=== PATIENT | male | born 2000 | race Hispanic/Latino ===

== ENCOUNTER 2023-01-04 02:28 | Emergency (ER) | payer OTHER ==
[2023-01-04 03:48] LABS: Absolute Lymphocytes (CBC) 0.5 K/uL (0.7-4.9); Hematocrit 39.7 % (39.6-49.0); Lymphocytes % 4.6 % (15.3-44.8); MCV 88.9 fL (80-100); MPV 8.8 fL (7.6-11.3); Platelets 186 thou/uL (152-406); RBC Red Blood Cell Count 4.47 M/uL (4.33-5.43)
[2023-01-04 03:58] LABS: SARS-CoV-2 Antigen Rapid Res Negative (Negative)
[2023-01-04] MEDS ORDERED: MORPHINE 4 MG/ML SYR ONE ×2 (04:00→06:15)
[2023-01-04] MEDS ORDERED: CEFTRIAXONE 1000 MG/VIAL ONE (04:00)
[2023-01-04] MEDS ORDERED: NA CHLORIDE 0.9% 50 ML ONE (04:01)
[2023-01-04] MEDS ORDERED: NA CHLORIDE 0.9% 2,000 ML ONE (04:01)
[2023-01-04] MEDS ORDERED: KETOROLAC 30 MG/ML INJ ONE (04:01)
[2023-01-04] MEDS ORDERED: TDAP (DIPHTH,PERTUSS(ACELL),TET VAC) 0.5 ML VIAL IMVAC ONE (04:01)
[2023-01-04 04:03] LABS: Potassium 3.4 mEq/L (3.5-5.1)
--- NOTE | 2023-01-04 05:56 | EDPHYS ---
Physician Documentation [facility] Name: Bill Bryan Age: 22 yrs Sex: Male : 2000 Arrival Date: 01/04/2023 Time: 02:28 Bed 6 Private MD: ED Physician Daniel Main HPI: 01/04 02:38 This 22 yrs old Male presents to ER via Unassigned with complaints of Facial sp4 trauma . 02:38 For a 22-year-old male presents from long-term with guards acute facial trauma. Patient sp4 cannot exactly what happened to him. . 05:54 Patient states he is not sure when it has happened to him. Patient was reportedly found sp4 on the floor of his cell laying down. . Historical: - Allergies: 03:19 Bee Pollen; pf1 - PMHx: 03:19 Asthma; Hypertensive disorder; pf1 - PSHx: 03:19 None; pf1 - Immunization history:: Adult Immunizations up to date, Client reports receiving the 1st dose of the Covid vaccine, Client reports receiving the Dudley \T\ Dudley single-dose vaccine. Last tetanus immunization: < 5 years ago Flu vaccine is not up to date. - Social history:: Smoking status: Patient reports the use of cigarette tobacco products, smokes one-half pack cigarettes per day, Patient/guardian denies using alcohol, street drugs. - Family history:: not pertinent. ROS: 05:54 Constitutional: Negative for fever, chills, and weight loss, ENT: Positive for facial sp4 injury, right facial swelling, right lower jaw pain, positive for tooth misalignment 05:54 All other systems are negative. Exam: 05:54 Constitutional: This is a well developed, well nourished patient who is awake, alert, sp4 and in no acute distress. Head/Face: Normocephalic, moderate right facial swelling, right lower swelling around the right mandible, positive for large right facial hematoma Eyes: Pupils equal round and reactive to light, extra-ocular motions intact. Lids and lashes normal. Conjunctiva and sclera are not injected. Cornea within normal limits. Periorbital areas with no swelling, redness, or edema. ENT: Nares patent. No nasal discharge, no septal abnormalities noted. Tympanic membranes are normal and external auditory canals are clear. There is trismus, patient not able to open his mouth, anterior misalignment of lower dental structures indicative of midline mandibular fracture. Moderate to severe right facial right mandibular tenderness Neck: Trachea midline, no thyromegaly or masses palpated, and no cervical lymphadenopathy. Supple, full range of motion without nuchal rigidity, or vertebral point tenderness. Chest/axilla: Normal chest wall appearance and motion. Nontender with no deformity. No lesions are appreciated. Cardiovascular: Regular rate and rhythm with a normal S1 and S2. No gallops, murmurs, or rubs. Normal PMI, no JVD. No pulse deficits. Respiratory: Lungs have equal breath sounds bilaterally, clear to auscultation and percussion. No rales, rhonchi or wheezes noted. No increased work of breathing, no retractions or nasal flaring. Abdomen/GI: Soft, non-tender, with normal bowel sounds. No distension or tympany. No guarding or rebound. No evidence of tenderness throughout. Back: No spinal tenderness. No costovertebral tenderness. Skin: Warm, dry with normal turgor. Normal color with no rashes, no lesions, and no evidence of cellulitis. MS/ Extremity: Pulses equal, no cyanosis. Neurovascular intact. Full, normal range of motion. Neuro: Awake and alert, GCS 15, oriented to person, place, time, and situation. Cranial nerves II-XII grossly intact. Motor strength 5/5 in all extremities. Sensory grossly intact. Psych: Awake, alert, with orientation to person, place and time. Behavior, mood, and affect are within normal limits Vital Signs: 02:29 BP 138 / 90; Pulse 91; Resp 20; Temp 97; Pulse Ox 98.5% on R/A; Weight 71 kg; Height 6 pf1 ft. 0 in. ; Pain 8/10; 04:00 BP 114 / 83; Pulse 81; Resp 16; Pulse Ox 100% on R/A; jb4 05:00 BP 100 / 67; Pulse 62; Resp 16; Pulse Ox 100% on R/A; jb4 06:15 BP 101 / 67; Pulse 71; Resp 16; Pulse Ox 100% on R/A; kd3 07:08 BP 99 / 63; Pulse 72; Resp 16; Pulse Ox 100% on R/A; tf2 02:29 Body Mass Index 21.23 (71.00 kg, 182.88 cm) pf1 02:29 Pain Scale: Adult pf1 MDM: 02:40 Patient medically screened. sp4 05:51 ED course: TECHNIQUE: CT MAXILLOFACIAL WITH IV CONTRAST on 01/04/2023 2:39 AM CDT This sp4 exam was performed according to our departmental dose-optimization program, which includes automated exposure control, adjustment of the mA and/or kV according to patient size and/or use of iterative reconstruction technique. FINDINGS: There is a fracture of the anterior mandible extending into the left anterolateral mandible. There is a second displaced fracture of the angle of the right mandible. The paranasal sinuses are clear. Orbits and globes are unremarkable. Mastoid air cells are clear. Temporomandibular joints are intact. There is extensive soft tissue swelling overlying the right mandible. There is subcutaneous air throughout the left perimandibular soft tissues. IMPRESSION: Anterior and right mandibular fractures. . ED course: FINDINGS: Brain: There is no acute hemorrhage, mass effect or midline shift. Felix-white differentiation is preserved. There is no hydrocephalus. There is no significant volume loss for age. The calvarium is intact. Orbits and globes are unremarkable. The paranasal sinuses are clear. Mastoid air cells are clear. Cervical Spine: Incompletely visualized right mandibular fracture is present with subcutaneous air in the perimandibular soft tissues. There are multiple fractures of the anterior nasal bones. Alignment is anatomic. Disc spaces are maintained. Vertebral body heights are preserved. Soft tissues are unremarkable. IMPRESSION: Right mandibular fracture. No acute intracranial hemorrhage or cervical spine fracture. 05:57 Differential Diagnosis Facial injury, facial contusion, maxillary fracture, mandibular sp4 fracture. Data reviewed: vital signs, nurses notes, EMS record, lab test result(s), radiologic studies, CT scan. Consideration of Admission/Observation Patient was admitted/placed on observation. Escalation of care including admission/observation considered. Management of patient was discussed with the following: Cloth Laminating Supervisor: OMFS at [facility]. ED course: Patient's warrant transfer for OMFS attention secondary to complex mandibular fracture. 06:24 ED course: Spoke with Dr. Hernández with ENT surgery and [facility] who has accepted the sp4 patient. . 08 02:39 Order name: Basic Metabolic Panel; Complete Time: 04:44 sp4 01/04 02:39 Order name: CBC with Diff; Complete Time: 04:44 sp4 01/04 02:39 Order name: Type And Screen; Complete Time: 04:44 sp4 01/04 02:40 Order name: SARS RAPID; Complete Time: 04:44 sp4 01/04 02:39 Order name: CT Head C Spine sp4 01/04 02:39 Order name: CT Facial Bones W/ Con \T\ Mpr sp4 01/04 02:39 Order name: Labs collected and sent; Complete Time: 03:44 sp4 01/04 02:40 Order name: NPO; Complete Time: 03:44 sp4 01/04 02:40 Order name: Saline Lock; Complete Time: 03:44 sp4 Administered Medications: 04:11 Drug: morphine IVP or IV 4 mg Route: IVP; Infused Over: 4 mins; Site: right antecubital;jb4 08:05 Follow up: Response: No adverse reaction; Pain is decreased iw 04:11 Drug: Ketorolac IVP 30 mg Route: IVP; Site: right antecubital; jb4 08:04 Follow up: Response: No adverse reaction iw 04:11 Drug: NS 0.9% IV 1000 ml Route: IV; Rate: 1 bolus; Site: right antecubital; jb4 07:00 Follow up: IV Status: Completed infusion iw 04:11 Drug: Rocephin - Rocephin (cefTRIAXone) IVPB 1 grams Route: IVPB; Infused Over: 30 jb4 mins; Site: right antecubital; 04:30 Follow up: IV Status: Completed infusion iw 04:11 Drug: NS 0.9% IV 1000 ml Route: IV; Rate: 125 ml/hr; Site: right antecubital; jb4 08:04 Follow up: IV Status: Infusion continued upon transfer iw 04:33 Drug: Tetanus-Diphtheria Toxoid IM Adult 0.5 ml {College Dean: [employer] ([employer]). jb4 Exp: 06/17/2023. Lot #: [id number]. } Route: IM; Site: right deltoid; 08:05 Follow up: Response: No adverse reaction iw 06:15 Drug: morphine IVP or IV 4 mg Route: IVP; Infused Over: 4 mins; Site: right antecubital;kd3 08:04 Follow up: Response: No adverse reaction; Pain is decreased iw 06:15 Drug: metoCLOPramide IVP 10 mg Route: IVP; Site: right antecubital; kd3 08:04 Follow up: Response: No adverse reaction iw Disposition Summary: 01/04/23 05:54 Transfer Ordered Transfer Location: [facility] sp4 Reason: Higher level of care sp4 Condition: Stable sp4 Problem: new sp4 Symptoms: have improved sp4 Accepting Physician: [facility] OMFS attending -Dr. Hernández of ENT(01/04/23 09:58) iw Diagnosis - Fracture of mandible sp4 - Mandibular angle fracture, facial contusion, facial hematoma, anterior mandibular sp4 fracture Forms: - Medication Reconciliation Form sp4 - SBAR form sp4 Signatures: Dispatcher [employer] EDSharmin Mendoza RN RN iw Russell Bran RN RN jb4 Erin Livingston RN RN kd3 Promise Harvey RN RN pf1 Daniel Main MD MD sp4 Corrections: (The following items were deleted from the chart) 06:26 05:54 [facility] attending sp4 sp4 09:58 06:26 [facility] Hern[facility] sp4 iw
--- NOTE | 2023-01-04 05:56 | ER ---
Nurse's Notes [facility] Name: Bill Bryan Age: 22 yrs Sex: Male : 2000 Arrival Date: 01/04/2023 Time: 02:28 Bed 6 Private MD: Diagnosis: Fracture of mandible;Mandibular angle fracture, facial contusion, facial hematoma, anterior mandibular fracture Presentation: 01/04 02:29 Chief complaint: Patient states: right jaw pain of 8 with swelling, bleeding and pf1 deformity,onset 0030. Patient stated he smoked some K2 earlier and did not remember anything else after that and was found on the floor in his cell. 02:29 Coronavirus screen: Vaccine status: Patient reports receiving the 1st dose of the Covid pf1 vaccine. Client denies travel out of the [place] in the last 14 days. At this time, the client does not indicate any symptoms associated with coronavirus-19. Ebola Screen: Patient negative for fever greater than or equal to 101.5 degrees Fahrenheit, and additional compatible Ebola Virus Disease symptoms. Initial Sepsis Screen: Does the patient meet any 2 criteria? HR > 90 bpm. No. Patient's initial sepsis screen is negative. Does the patient have a suspected source of infection? No. Patient's initial sepsis screen is negative. Risk Assessment: Do you want to hurt yourself or someone else? Patient reports no desire to harm self or others. 02:29 Method Of Arrival: Law Enforcement: [place] [employer] pf1 02:29 Acuity: MELCHOR 3 pf1 06:16 Onset of symptoms was January 04, 2023. kd3 Historical: - Allergies: 03:19 Bee Pollen; pf1 - PMHx: 03:19 Asthma; Hypertensive disorder; pf1 - PSHx: 03:19 None; pf1 - Immunization history:: Adult Immunizations up to date, Client reports receiving the 1st dose of the Covid vaccine, Client reports receiving the Dudley \T\ Dudley single-dose vaccine. Last tetanus immunization: < 5 years ago Flu vaccine is not up to date. - Social history:: Smoking status: Patient reports the use of cigarette tobacco products, smokes one-half pack cigarettes per day, Patient/guardian denies using alcohol, street drugs. - Family history:: not pertinent. Screenin:15 [facility] ED Fall Risk Assessment (Adult) History of falling in the last 3 months, kd3 including since admission No falls in past 3 months (0 pts) Confusion or Disorientation No (0 pts) Intoxicated or Sedated No (0 pts) Impaired Gait No (0 pts) Mobility Assist Device Used No (0 pt) Altered Elimination No (0 pt) Score/Fall Risk Level 0 - 2 = Low Risk Maintained a safe environment. Abuse screen: Denies threats or abuse. Denies injuries from another. Nutritional screening: No deficits noted. Tuberculosis screening: No symptoms or risk factors identified. Assessment: 03:30 General: Appears in no apparent distress. uncomfortable, Behavior is calm, cooperative, jb4 appropriate for age. Pain: Complains of pain in right cheek and right mandible Pain does not radiate. Pain currently is 8 out of 10 on a pain scale. Neuro: Level of Consciousness is awake, alert, obeys commands, Oriented to person, place, time, situation. Cardiovascular: Patient's skin is warm and dry. Respiratory: Airway is patent Respiratory effort is even, unlabored, Respiratory pattern is regular, symmetrical. GI: No signs and/or symptoms were reported involving the gastrointestinal system. : No signs and/or symptoms were reported regarding the genitourinary system. EENT: No signs and/or symptoms were reported regarding the EENT system. Derm: Skin is intact, Skin is pink, warm \T\ dry. Musculoskeletal: Circulation, motion, and sensation intact. Range of motion: intact in all extremities. 03:30 Injury Description: Hematoma to the right lower jaw. jb4 05:00 Reassessment: Patient appears in no apparent distress at this time. Patient and/or jb4 family updated on plan of care and expected duration. Pain level reassessed. Patient is alert, oriented x 3, equal unlabored respirations, skin warm/dry/pink. 06:00 Reassessment: Patient appears in no apparent distress at this time. Patient and/or tf2 family updated on plan of care and expected duration. Pain level reassessed. Patient is alert, oriented x 3, equal unlabored respirations, skin warm/dry/pink. 07:00 Reassessment: Patient appears in no apparent distress at this time. Patient and/or jb4 family updated on plan of care and expected duration. Pain level reassessed. Patient is alert, oriented x 3, equal unlabored respirations, skin warm/dry/pink. Hematoma notably larger to right lower jaw. provider notified. 08:02 Reassessment: Patient appears in no apparent distress at this time. Patient and/or iw family updated on plan of care and expected duration. Pain level reassessed. Patient is alert, oriented x 3, equal unlabored respirations, skin warm/dry/pink. report called to [facility], pt will be picked up at 0900. Vital Signs: 02:29 BP 138 / 90; Pulse 91; Resp 20; Temp 97; Pulse Ox 98.5% on R/A; Weight 71 kg; Height 6 pf1 ft. 0 in. ; Pain 8/10; 04:00 BP 114 / 83; Pulse 81; Resp 16; Pulse Ox 100% on R/A; jb4 05:00 BP 100 / 67; Pulse 62; Resp 16; Pulse Ox 100% on R/A; jb4 06:15 BP 101 / 67; Pulse 71; Resp 16; Pulse Ox 100% on R/A; kd3 07:08 BP 99 / 63; Pulse 72; Resp 16; Pulse Ox 100% on R/A; tf2 02:29 Body Mass Index 21.23 (71.00 kg, 182.88 cm) pf1 02:29 Pain Scale: Adult pf1 ED Course: 02:29 Patient arrived in ED. rv1 02:36 Daniel Main MD is Attending Physician. sp4 03:19 Triage completed. pf1 04:11 Russell Bran, RN is Primary Nurse. jb4 05:01 CT Head C Spine In Process Unspecified. EDMS 05:02 CT Facial Bones W/ Con \T\ Mpr In Process Unspecified. EDMS 05:52 Initiated transfer with Rosie at [facility]. rv1 06:16 Arm band placed on right wrist. kd3 06:16 Patient has correct armband on for positive identification. Provided Education on: . kd3 06:23 Pt accepted to [facility] by Dr. Hernández. rv1 06:56 [facility] will call back with ETA for transportation. rv1 08:03 No provider procedures requiring assistance completed. iw 08:03 Maintain EMS IV. Dressing intact. Good blood return noted. Site clean \T\ dry. Gauge \T\ iw site: 20 RAC. Administered Medications: 04:11 Drug: morphine IVP or IV 4 mg Route: IVP; Infused Over: 4 mins; Site: right antecubital;jb4 08:05 Follow up: Response: No adverse reaction; Pain is decreased iw 04:11 Drug: Ketorolac IVP 30 mg Route: IVP; Site: right antecubital; jb4 08:04 Follow up: Response: No adverse reaction iw 04:11 Drug: NS 0.9% IV 1000 ml Route: IV; Rate: 1 bolus; Site: right antecubital; jb4 07:00 Follow up: IV Status: Completed infusion iw 04:11 Drug: Rocephin - Rocephin (cefTRIAXone) IVPB 1 grams Route: IVPB; Infused Over: 30 jb4 mins; Site: right antecubital; 04:30 Follow up: IV Status: Completed infusion iw 04:11 Drug: NS 0.9% IV 1000 ml Route: IV; Rate: 125 ml/hr; Site: right antecubital; jb4 08:04 Follow up: IV Status: Infusion continued upon transfer iw 04:33 Drug: Tetanus-Diphtheria Toxoid IM Adult 0.5 ml {Country Singer: [employer] ([employer]). jb4 Exp: 06/17/2023. Lot #: [id number]. } Route: IM; Site: right deltoid; 08:05 Follow up: Response: No adverse reaction iw 06:15 Drug: morphine IVP or IV 4 mg Route: IVP; Infused Over: 4 mins; Site: right antecubital;kd3 08:04 Follow up: Response: No adverse reaction; Pain is decreased iw 06:15 Drug: metoCLOPramide IVP 10 mg Route: IVP; Site: right antecubital; kd3 08:04 Follow up: Response: No adverse reaction iw Medication: 06:16 VIS not applicable for this client. kd3 Outcome: 05:54 ER care complete, transfer ordered by . sp4 09:58 Patient left the ED. iw Signatures: Dispatcher [employer] Sharmin Chacon RN RN iw Russell Bran RN RN jb4 Erin Livingston RN RN kd3 Promise Harvey RN RN pf1 Villegas, Rebecca rv1 Potepalov, Sergey, MD MD sp4 Ceron, Keyona, RN RN tf2 Corrections: (The following items were deleted from the chart) 07:09 Reassessment: Patient appears in no apparent distress at this time. Patient tf2 and/or family updated on plan of care and expected duration. Pain level reassessed. Patient is alert, oriented x 3, equal unlabored respirations, skin warm/dry/pink. tf2 07:09 Reassessment: Patient appears in no apparent distress at this time. Patient jb4 and/or family updated on plan of care and expected duration. Pain level reassessed. Patient is alert, oriented x 3, equal unlabored respirations, skin warm/dry/pink. Hematoma notably larger to right lower jaw. provider notified. tf2 03:30 Injury Description: Hematoma to the right lower jaw. tf2 jb4
[2023-01-04] MEDS ORDERED: NA CHLORIDE 0.9% 100 ML ONE (06:15)
[2023-01-04] MEDS ORDERED: METOCLOPRAMIDE 10 MG/2mL INJ ONE (06:16)
[2023-01-04 10:03] VITALS: TEMP 97
[2023-01-04 10:04] VITALS: O2SAT 100
[2023-01-04 10:08] VITALS: BP 99/63
--- NOTE | 2023-01-05 17:28 | RAD REPORT ---
EXAM DESCRIPTION: CT - Head C Spine Mpr Wo Con - 01/04/2023 4:59 am CLINICAL HISTORY: Facial injury COMPARISON: None. TECHNIQUE: CT HEAD AND CERVICAL SPINE WITHOUT CONTRAST on 01/04/2023 2:39 AM CDT This exam was performed according to our departmental dose-optimization program, which includes autom ated exposure control, adjustment of the mA and/or kV according to patient size and/or use of iterati ve reconstruction technique. FINDINGS: Brain: There is no acute hemorrhage, mass effect or midline shift. Felix-white differentiat ion is preserved. There is no hydrocephalus. There is no significant volume loss for age. The calvarium is intact. Orbits and globes are unremarkable. The paranasal sinuses are clear. Mastoid air cells are clear. Cervical Spine: Incompletely visualized right mandibular fracture is present with subcutaneous air in the perimandibular soft tissues. There are multiple fractures of the anterior nasal bones. Alignment is anatomic. Disc spaces are maintained. Vertebral body heights are preserved. Soft tissues are unremarkable. IMPRESSION: Right mandibular fracture. No acute intracranial hemorrhage or cervical spine fracture. Electronically signed by: Vineet Mota MD 01/04/2023 5:14 AM CDT Due to temporary technical issues with the PACS/Fluency reporting system, reports are being signed by the in house radiologists without review as a courtesy to insure prompt reporting. The interpreting radiologist is fully responsible for the content of the report.
--- NOTE | 2023-01-05 17:29 | RAD REPORT ---
EXAM DESCRIPTION: CT - Facial Bones W Con Mpr - 01/04/2023 4:59 am CLINICAL HISTORY: Mandibular fracture COMPARISON: None. TECHNIQUE: CT MAXILLOFACIAL WITH IV CONTRAST on 01/04/2023 2:39 AM CDT This exam was performed according to our departmental dose-optimization program, which includes autom ated exposure control, adjustment of the mA and/or kV according to patient size and/or use of iterati ve reconstruction technique. FINDINGS: There is a fracture of the anterior mandible extending into the left anterolateral mandibl e. There is a second displaced fracture of the angle of the right mandible. The paranasal sinuses are clear. Orbits and globes are unremarkable. Mastoid air cells are clear. Temporomandibular joints are intact. There is extensive soft tissue swelling overlying the right mandible. There is subcutaneous air throughout the left perimandibular soft tissues. IMPRESSION: Anterior and right mandibular fractures. Electronically signed by: Vineet Mota MD 01/04/2023 5:10 AM CDT Due to temporary technical issues with the PACS/Fluency reporting system, reports are being signed by the in house radiologists without review as a courtesy to insure prompt reporting. The interpreting radiologist is fully responsible for the content of the report.
== END 2023-01-04 09:58 | disposition short-term general hospital (02) ==
LOC: ER 02:28
DX: S02.651A Fracture of angle of right mandible, initial encounter for closed fracture (principal); S00.83XA Contusion of other part of head, initial encounter; F17.210 Nicotine dependence, cigarettes, uncomplicated; Z23 Encounter for immunization; Z91.030 Bee allergy status; Z20.822 Contact with and (suspected) exposure to COVID-19
CPT/HCPCS: 96365; 96361; 85025; 80048; 36415; 86900; 86850; 86901; 70450; 72125; 70487; 76377; 90471; 96375; 99284; 87811; Q9967; J2765; J0696; J7030